=== PATIENT | male | born 1950 | race Caucasian/White ===

== ENCOUNTER → 2020-08-04 | Day surgery (SDC) | payer OTHER ==
[~2020-08-04] MED LIST: ADULT LOW DOSE81 MG PO; AMARYL2 MG PO; ASPIRIN EC325 MG PO; ELAVIL50 MG PO; FISH OIL 1,0001 EAC1 PO; HYDROCHLOROTHIA25 M1 PO; LOPRESSOR100 MG PO; MEDROL 4MG DOSEP4 MG PO; METFORMIN HCL500 MG PO; NIASPAN500 MG PO; NORCO 5-325 TA1 EACH PO; PLAVIX75 MG PO; PRAVACHOL40 MG PO; PRINIVIL10 MG PO; PROBIOTIC1 EAC2 PO; PROZAC20 MG PO; SYNTHROID 0.1M0.1 MG PO; SYNTHROID100 MCG PO; TESSALON PERLE100 M1 PO; TRIAMTERENE-HC1 EACH PO; TUMS500 MG PO; VENTOLIN HFA IN18 GM INH; VIBRAMYCIN100 MG PO; VITAMIN B-121000 MCG PO; VITAMIN D250000 UNIT PO
[2020-08-04 08:12] LABS: HCT 41.5 % (42.0-52.0); HGB 13.9 g/dl (13.2-18.0); MCH 29.1 pg (25.0-31.0); MCHC 33.5 g/dL (32.0-36.0); MCV 86.8 fL (78.0-100.0); MPV 8.4 fL (6.0-9.5); RBC 4.78 M/uL (4.70-6.00); RDW 14.5 % (11.5-14.0); WBC 7.1 K/uL (4.0-10.5)
[2020-08-04 08:29] LABS: ALBUMIN 3.7 g/dL (3.4-5.0); BILIRUBIN - TOTAL 0.7 mg/dL (0.2-1.0); BUN/CREAT RATIO (CALC) 14.2 RATIO; CREATININE 1.27 mg/dL (0.67-1.17); GLOBULIN (CALCULATION) 3.9 g/dL; POTASSIUM 3.7 mmol/L (3.5-5.1); TOTAL PROTEIN 7.6 g/dL (6.4-8.2)
== END | disposition home or self-care (01) ==
LOC: FAS 07:29
PROVIDERS: Surgery
DX: Z12.11 Encounter for screening for malignant neoplasm of colon (principal); D12.3 Benign neoplasm of transverse colon; I25.10 Atherosclerotic heart disease of native coronary artery without angina pectoris; I12.9 Hypertensive chronic kidney disease with stage 1 through stage 4 chronic kidney disease, or unspecified chronic kidney disease; N18.30 Chronic kidney disease, stage 3 unspecified; F41.9 Anxiety disorder, unspecified; F32.9 Major depressive disorder, single episode, unspecified; E11.22 Type 2 diabetes mellitus with diabetic chronic kidney disease; E11.40 Type 2 diabetes mellitus with diabetic neuropathy, unspecified; E11.65 Type 2 diabetes mellitus with hyperglycemia; E78.00 Pure hypercholesterolemia, unspecified; E03.9 Hypothyroidism, unspecified; G47.30 Sleep apnea, unspecified; K21.9 Gastro-esophageal reflux disease without esophagitis; Z90.49 Acquired absence of other specified parts of digestive tract; Z95.5 Presence of coronary angioplasty implant and graft; Z20.822 Contact with and (suspected) exposure to COVID-19; Z79.84 Long term (current) use of oral hypoglycemic drugs
CPT/HCPCS: 36415; 80053; 82962; 88305; J2704; J7120

== ENCOUNTER 2021-04-22 07:25 | Emergency (ER) | payer OTHER ==
[~2021-04-22] VITALS: Ht 182.9 cm; Wt 104.3 kg
[2021-04-22 07:53] LABS: BASOPHIL 0.2 % (0-2); EOSINOPHIL 0.3 % (0-7); HCT 42.8 % (42.0-52.0); HGB 14.3 g/dl (13.2-18.0); LYMPHOCYTE 15.5 % (15-48); MCH 28.9 pg (25.0-31.0); MCHC 33.4 g/dL (32.0-36.0); MCV 86.5 fL (78.0-100.0); MONOCYTE 6.8 % (0-12); NEUTROPHIL 76.7 % (41-80); NRBC 0; PLT 174 K/uL (150-400); RBC 4.95 M/uL (4.70-6.00); RDW 14.3 % (11.5-14.0); WBC 9.4 K/uL (4.0-10.5)
[2021-04-22 08:10] LABS: PROTHROMBIN TIME 12.6 SECONDS (11.8-13.4); PTT 24.7 SECONDS (24.4-34.7)
[2021-04-22 08:13] LABS: ALBUMIN 3.6 g/dL (3.4-5.0); BILIRUBIN - TOTAL 0.5 mg/dL (0.2-1.0); BUN/CREAT RATIO (CALC) 23.7 RATIO; CREATININE 1.39 mg/dL (0.67-1.17); GLOBULIN (CALCULATION) 3.4 g/dL; POTASSIUM 3.6 mmol/L (3.5-5.1)
== END 2021-04-22 11:45 | disposition other institution (70) ==
LOC: FER 07:25
PROVIDERS: Internal Medicine
DX: I21.4 Non-ST elevation (NSTEMI) myocardial infarction (principal); E11.22 Type 2 diabetes mellitus with diabetic chronic kidney disease; I12.9 Hypertensive chronic kidney disease with stage 1 through stage 4 chronic kidney disease, or unspecified chronic kidney disease; N18.9 Chronic kidney disease, unspecified; Z79.82 Long term (current) use of aspirin; Z79.899 Other long term (current) drug therapy; Z79.84 Long term (current) use of oral hypoglycemic drugs; Z79.02 Long term (current) use of antithrombotics/antiplatelets; Z20.822 Contact with and (suspected) exposure to COVID-19
CPT/HCPCS: 36415; 71045; 80053; 84484; 85025; 85610; 85730; 93005; J1644; J2405; U0002

== ENCOUNTER 2021-08-24 13:20 | Emergency (ER) | payer OTHER | END 2021-08-24 15:34 | disposition home or self-care (01) | LOC: FER 13:20 | DX: S50.11XA Contusion of right forearm, initial encounter (principal); E11.9 Type 2 diabetes mellitus without complications; I10 Essential (primary) hypertension; Z23 Encounter for immunization; Z79.82 Long term (current) use of aspirin; Z79.899 Other long term (current) drug therapy; Z79.84 Long term (current) use of oral hypoglycemic drugs; W01.0XXA Fall on same level from slipping, tripping and stumbling without subsequent striking against object, initial encounter; Y92.009 Unspecified place in unspecified non-institutional (private) residence as the place of occurrence of the external cause | CPT/HCPCS: 73090; 90471; 90715 ==

== ENCOUNTER 2021-10-15 13:09 | Emergency (ER) | payer OTHER ==
[2021-10-15 13:42] LABS: BASOPHIL 0.4 % (0-2); EOSINOPHIL 3.5 % (0-7); HGB 13.7 g/dl (13.2-18.0); LYMPHOCYTE 13.7 % (15-48); MCH 30.6 pg (25.0-31.0); MCHC 33.4 g/dL (32.0-36.0); MCV 91.7 fL (78.0-100.0); MONOCYTE 8.5 % (0-12); MPV 8.7 fL (6.0-9.5); NEUTROPHIL 73.5 % (41-80); NRBC 0; PLT 164 K/uL (150-400); RBC 4.47 M/uL (4.70-6.00); RDW 13.8 % (11.5-14.0); WBC 6.8 K/uL (4.0-10.5)
[2021-10-15 13:47] LABS: INR 1.14 (0.9-1.2)
[2021-10-15 13:48] LABS: PTT 29.7 SECONDS (24.4-34.7)
[2021-10-15 13:49] LABS: D-DIMER 0.61 ug/mLFEU (0.00-0.41)
[2021-10-15 14:00] LABS: IRON % SATURATION 32.4 %SAT (20-50)
[2021-10-15 14:02] LABS: BILIRUBIN NEGATIVE (NEGATIVE); BLOOD NEGATIVE Ery/uL (NEGATIVE); CLARITY CLEAR (CLEAR); COLOR YELLOW (YELLOW); GLUCOSE (U) NORMAL (NORMAL); LEUKOCYTES NEGATIVE Leu/uL (NEGATIVE); NITRITE NEGATIVE (NEGATIVE); PROTEIN NEGATIVE (NEGATIVE); SPECIFIC GRAVITY 1.025 (1.001-1.030); UROBILINOGEN 0.2 mg/dL (0.2-1.0)
[2021-10-15 14:08] LABS: ALBUMIN 3.2 g/dL (3.4-5.0); ALKALINE PHOSHATASE 120 U/L (46-116); ALT 44 U/L (16-63); AST 24 U/L (15-37); BILIRUBIN - TOTAL 1.3 mg/dL (0.2-1.0); BUN 22 mg/dL (7-18); BUN/CREAT RATIO (CALC) 13.5 RATIO; CHLORIDE 98 mmol/L (98-107); CO2 (BICARBONATE) 26 mmol/L (21-32); CREATININE 1.63 mg/dL (0.67-1.17); GLOBULIN (CALCULATION) 3.3 g/dL; GLUCOSE 192 mg/dL (74-106); LIPASE 70 U/L (73-393); MAGNESIUM 1.6 mg/dL (1.8-2.4); TOTAL PROTEIN 6.5 g/dL (6.4-8.2)
[2021-10-15 14:18] LABS: CORONAVIRUS 2019 SARS-COV-2 NEGATIVE (NEGATIVE); INFLUENZA A NAA NEGATIVE (NEGATIVE)
[2021-10-15 14:20] LABS: LACTIC ACID 2.4 mmol/L (0.4-1.9)
== END 2021-10-15 20:20 | disposition other institution (70) ==
LOC: FER 13:09
PROVIDERS: Emergency Medicine
DX: I95.1 Orthostatic hypotension (principal); E11.9 Type 2 diabetes mellitus without complications; I10 Essential (primary) hypertension; Z79.84 Long term (current) use of oral hypoglycemic drugs; Z20.822 Contact with and (suspected) exposure to COVID-19
CPT/HCPCS: 36415; 70450; 71045; 71275; 80053; 81003; 82728; 83540; 83550; 83605; 83690; 83735; 83880; 84145; 84439; 84443; 84484; 85025; 85379; 85610; 85730; 86140; 87040; 93005; G0480; J7030; J7050; Q9967; U0002